=== PATIENT | female | born 1985 | race Caucasian/White ===

== ENCOUNTER 2017-06-24 15:36 | Emergency (ER) | payer MEDICAID ==
[~2017-06-24] VITALS: Ht 160 cm; Wt 88.0 kg
[2017-06-24 16:15] VITALS: Ht 160 cm; Wt 88.0 kg
[2017-06-24 17:15] LABS: UA SPECIFIC GRAVITY 1.025 (1.005-1.035); microscopic required? YES; urine erythrocyte TRACE (NEGATIVE)
[2017-06-24 18:54] LABS: BASOPHIL % 0.5 % (0-2); PLATELET COUNT 216 x10^3mcL (130-400); RED CELL DISTRIBUTION WIDTH 12.9 % (11.5-14.5)
[2017-06-24 19:21] LABS: CALCIUM 8.6 mg/dL (8.5-10.1); CARBON DIOXIDE 21.1 mmol/L (21-32); CHLORIDE SERUM 105 mmol/L (98-107); CREATININE SERUM 0.5 mg/dL (0.6-1.0); GFR1 > 60 mL/min; GLUCOSE SERUM 78 mg/dL (74-106); POTASSIUM SERUM 3.4 mmol/L (3.5-5.1); SODIUM SERUM 139 mmol/L (136-145)
[2017-06-24 19:25] LABS: ALKALINE PHOSPHATASE 60 U/L (46-116); ALT/SGPT 32 U/L (14-59); AMYLASE 59 U/L (25-115); AST/SGOT 15 U/L (15-37); BILIRUBIN TOTAL 0.3 mg/dL (0.20-1.00); CHOLESTEROL 149 mg/dL (<200); LIPASE 111 IU/L (73-393); TOTAL PROTEIN, SERUM 7.2 g/dL (6.4-8.2)
[2017-06-24 19:34] LABS: ALBUMIN 3.5 g/dL (3.4-5.0)
[2017-06-24 19:35] LABS: HDL CHOLESTEROL 61 mg/dL (40-60)
[2017-06-24 21:47] VITALS: BP 135/86
== END 2017-06-24 21:47 | disposition home or self-care (01) ==
LOC: ED 15:36
PROVIDERS: Emergency Medicine
DX: O26.891 Other specified pregnancy related conditions, first trimester (principal); R10.13 Epigastric pain; R10.30 Lower abdominal pain, unspecified; K76.0 Fatty (change of) liver, not elsewhere classified; Z3A.01 Less than 8 weeks gestation of pregnancy; Z98.890 Other specified postprocedural states
CPT/HCPCS: 36415; Q0092

== ENCOUNTER 2018-02-18 20:19 | Emergency (ER) | payer MEDICAID ==
[~2018-02-18] VITALS: Ht 162.6 cm; Wt 102.1 kg
[2018-02-18 20:25] VITALS: Ht 162.6 cm; Wt 102.1 kg
[2018-02-18 21:31] VITALS: BP 137/87
== END 2018-02-18 21:31 | disposition home or self-care (01) ==
LOC: ED 20:19
DX: O86.0 Infection of obstetric surgical wound (principal); Z87.19 Personal history of other diseases of the digestive system

== ENCOUNTER 2019-03-16 16:09 | Emergency (ER) | payer BC ==
[~2019-03-16] VITALS: Ht 157.5 cm; Wt 104.3 kg
[2019-03-16 16:19] VITALS: Ht 157.5 cm; Wt 104.3 kg
[2019-03-16 18:18] VITALS: BP 140/68
== END 2019-03-16 18:18 | disposition home or self-care (01) ==
LOC: ED 16:09
DX: B34.9 Viral infection, unspecified (principal); Z98.890 Other specified postprocedural states